=== PATIENT | female | born 1970 | race Caucasian/White ===

== ENCOUNTER 2023-12-21 10:45 | Day surgery (SDC) | payer BC ==
[2023-12-13 13:19] VITALS: BMI 27.9
[2023-12-21 12:31] VITALS: RESP 18; TEMP 97.8
[2023-12-21 12:55] VITALS: BP 114/61; PULSE 69
== END 2023-12-21 13:03 | disposition home or self-care (01) ==
LOC: FASU-ENDO 10:45
PROVIDERS: ATTEND Internal Medicine Gastroenterology
PROC: 0DBN8ZX Excision of Sigmoid Colon, Via Natural or Artificial Opening Endoscopic, Diagnostic (ICD-10-PCS; principal; 2023-12-21 12:09)
DX: Z12.11 Encounter for screening for malignant neoplasm of colon (principal); K63.5 Polyp of colon; K64.1 Second degree hemorrhoids; K64.8 Other hemorrhoids
CPT/HCPCS: 88305-TC